=== PATIENT | male | born 1970 | race Caucasian/White ===

== ENCOUNTER 2016-11-03 16:13 | Emergency (ER) | payer BC ==
[2016-11-03 16:49] LABS: Hematocrit 41.2 % (42.0-52.0); Hemoglobin 14.6 gm/dL (13.5-18.0); Mean Cell Volume 83.6 fl (78-100); Mean Corpuscular Hemoglobin 29.6 pg (27-31); Mean Corpuscular Hgb Conc 35.4 g/dl (32-36); Mean Platelet Volume 9.6 fl (6.0-9.5); Neutrophil # 10.2 K/mm3 (1.3-6.0); Neutrophil % 72.2 % (42-75.0); Platelet Count 269 K/mm3 (150-450); Red Blood Count 4.93 M/mm3 (4.7-6.0); Red Cell Distribution Width 12.8 % (11.5-14.0); White Blood Count 14.1 K/mm3 (4.0-10.5)
[2016-11-03 16:49] LABS: Urine Bilirubin Negative (NEGATIVE); Urine Blood Negative /ul (NEGATIVE); Urine Ketone Negative (NEGATIVE); Urine Nitrite Negative (NEGATIVE); Urine Protein 15 mg/dL (NEGATIVE); Urine Urobilinogen Normal (NORMAL); Urine pH 8.5 pH (5.0-7.0)
[2016-11-03 16:50] LABS: Urine Appearance Clear; Urine Color Yellow
[2016-11-03 16:55] LABS: Urine Amorphous Sediment Many - 3+ (NONE-FEW); Urine Bacteria TRACE; Urine RBC None Seen /hpf (0-5); Urine WBC TRACE /hpf (0-5)
--- NOTE | 2016-11-03 16:56 | ERNOTE ---
Abdominal HPI - Narrative Date of Service: 11/03/16 - General Chief Complaint: Abdominal Pain Time Seen by Provider: 11/03/16 16:54 Source: patient, RN notes reviewed Exam Limitations: no limitations - Immun/Allergies/Home Medications Immunizatons: IMMUNIZATION HX History of Influenza Vaccine Yes Allergies/Adverse Reactions: Allergies Sulfa (Sulfonamide Antibiotics) Allergy (Verified 11/03/16 16:29) Home Medications: HOME MEDICATIONS Losartan Potassium [Cozaar] 100 mg PO DAILY 11/03/16 [Last Taken Unknown] Omeprazole [Prilosec] 20 mg PO DAILY 11/03/16 [Last Taken Unknown] - History of Present Illness Narrative: 46 y/o male to ED by private vehicle for abdominal pain that began at 0900 today. He reports that several coworkers have had a GI illness with vomiting and diarrhea that began with severe pain. He has been nauseous but has had no other symptoms. He reports having a "normal" bowel movement this morning. He last ate at noon today. This did not make the pain better or worse. The pain has gradually gotten worse throughout the afternoon. Quality: severe, aching Activities at Onset: none Prior Abdominal Problems: Present: other - GERD. Absent: recent trauma, similar symptoms Prior Treatment: Absent: recently seen Review of Systems - Review of Systems Constitutional: Present: chills, malaise. Absent: fever EYE: Present: no symptoms reported ENT: Present: no symptoms reported Respiratory: Absent: shortness of breath, cough Cardiology: Absent: chest pain, syncope Gastrointestinal/Abdominal: Present: nausea, abdominal pain. Absent: vomiting, diarrhea, constipation Genitourinary: Absent: dysuria, hematuria Musculoskeletal: Absent: back pain, neck pain Skin: Absent: rash, lesions, lumps Neurological: Present: dizziness/light-headedness. Absent: headache Endocrine: Present: no symptoms reported Hematologic/Lymphatic: Present: no symptoms reported Psych: Present: no symptoms reported - Patient's Past Medical History Patient History - Medical: GERD Patient History - Cardiac/Respiratory: Hypertension Patient History - Cancer: No Hx of Cancer Patient History - Surgical Procedures: Colonoscopy, EGD, Other - Knee surgery Patient History - Other: None - Social History Living Situations: spouse Psych History: No pertinent hx Smoking Status: Never smoker Alcohol Use: none Drug Use: none - Immunizations History of Influenza Vaccine: Yes Physical Exam - Physical Exam General Appearance: Present: wd/wn, alert, mild distress Neck: Present: normal inspection, nontender, supple Respiratory: Present: no respiratory distress, normal breath sounds, no accessory muscle use, chest nontender, lungs clear Cardiovascular/Chest: Present: regular rate, rhythm, no murmur Gastrointestinal/Abdominal: Present: nondistended, soft, tenderness - Periumbillical and RLQ, abnormal bowel sounds - hypoactive Back Exam: Present: normal inspection, no CVA tenderness Neurological Exam: Present: alert, oriented, normal mood/affect Skin Exam: Present: normal color, warm/dry ED Progress - Results and Orders Patient's Lab Results:: I have reviewed the patient's lab results. - Vital Signs Patient's Vital Signs:: I have reviewed the patient's vital signs. Vital Signs: Vital Signs 11/03/16 16:21 Temperature 36.3 C L Pulse Rate 73 Respiratory 12 Rate Blood Pressure 130/107 O2 Sat by Pulse 99 Oximetry - CT/Ultrasound CT/Ultrasound Narrative: Technique: After the administration of enteric contrast material, early post IV contrast imaging through the abdomen, and delayed post contrast imaging through the abdomen and pelvis. Coronal reformatted images were performed. Comparison: No relevant priors. Findings: Abdomen: The lung bases are clear. The liver is normal without mass or ductal dilation. The gallbladder is normal. The spleen, pancreas and adrenal glands are normal. The kidneys demonstrate normal contrast-enhancement and excretion and are without solid mass, nephrolithiasis or hydronephrosis. The stomach and small bowel loops are well-opacified and normal. No mesenteric or retroperitoneal lymphadenopathy. The appendix is identified in the right lower quadrant and is normal. No enlargement or inflammation. Pelvis: The bladder is well distended and normal. No free pelvic fluid. No inguinal or pelvic lymphadenopathy. There the aorta is normal. There is mild degenerative change of the spine, SI joints and bilateral hips. IMPRESSION: 1. NO ACUTE INTRA-ABDOMINAL OR PELVIC PROCESS. 2. NORMAL APPENDIX. 3. ADDITIONAL COMMENTS AND DETAILS ABOVE. Electronically signed by Indra Lima D.O.. - Progress/Reassessment Chief Complaint: Abdominal Pain Progress:: Improved Plan - Plan Plan: Pain initially located in periumbillical region with mild RLQ tenderness, but localized to the RLQ. No improvement with Toradol. Did have pain relief with Morphine. No vomiting in dept, was able to tolerate oral CT contrast. Elevated WBC with normal CRP and ESR, unremarkable CT scan, discussed results and indications for needing further eval, as well as the possibility that this could be an early process such as appendicitis. Agreeable to short term f/u as needed. Departure - Departure Clinical Impression: Abdominal pain, acute, right lower quadrant Disposition: Home Follow Up Needed Condition: Stable Instructions: Abdominal Pain, Adult, [id number] Additional Instructions: Small amounts of liquids as tolerated Return for worsening symptoms
[2016-11-03] MEDS ORDERED: KETOROLAC TROMETHAMINE 30 MG/ML VIAL IV ONE (17:04)
[2016-11-03] MEDS ORDERED: ONDANSETRON HCL/PF 2 MG/ML VIAL IV ONE (17:04)
[2016-11-03 17:08] LABS: Albumin * 4.4 gm/dl (3.4-5.0); Anion Gap 15.1 mmol/L (6.8-13.8); BUN/Creatinine Ratio 13.5 (9.0-21.6); Bilirubin, Total 0.6 mg/dL (0.0-1.1); Ca. Corrected For Albumin 8.3 mg/dL (8.4-10.2); Calcium * 8.9 mg/dL (7.9-10.9); Carbon Dioxide 26.6 mmol/L (24-32.6); Potassium 3.7 mmol/L (3.4-4.6); Total Protein 7.6 gm/dL (6.2-8.2)
--- OUTSIDE RECORDS SUMMARY | 2016-11-03 17:14 | XMS REPORT | Continuity of Care Document ---
:1970 Author Organization [facility] ([facility]) Address [address] [place] [address] Phone [phone] Care Team Providers Name Role Phone Unavailable Primary Care Provider Unavailable Source Comments This disclosure is being made pursuant to the Care Everywhere program, applicable federal and state laws, and may not contain all informaitonavailable regarding this patient.[facility] ([facility]) Active Allergies and Adverse Reactions Not on File Current Medications Not on file Active Problems Not on file Social History Tobacco Use Types Packs/Day Years Used Date Never Assessed Plan of Care Health Maintenance Due Date Last Done Comments Hepatitis B Vaccine (1 of 3 - Primary Series) 1970 Tdap Vaccine 1980 Lipid Disorder Screening 1987 MMR Vaccine 1987 Td Vaccine 1987 Influenza Vaccine: Seasonal (#1) 04/14/2016 Results from Last 3 Months Not on file
[2016-11-03] MEDS ORDERED: KETOROLAC TROMETHAMINE 30 MG/ML VIAL ONE (17:17)
[2016-11-03] MEDS ORDERED: ONDANSETRON HCL/PF 2 MG/ML VIAL ONE (17:17)
[2016-11-03] MEDS ORDERED: MORPHINE SULFATE 4 MG/ML SYRG ONE ×2 (17:47→18:01)
[2016-11-03] MEDS ORDERED: MORPHINE SULFATE 4 MG/ML SYRG IV ONE ×2 (17:51→17:58)
[2016-11-03] MEDS ORDERED: DIATRIZOATE MEGLU/DIATRIZO SOD 30 ML BTL PO ONE (17:53)
[2016-11-03] MEDS ORDERED: DIATRIZOATE MEGLU/DIATRIZO SOD 30 ML BTL ONE (17:55)
[2016-11-03] MEDS ORDERED: METOCLOPRAMIDE HCL 5 MG/ML VIAL IV ONE (17:58)
[2016-11-03] MEDS ORDERED: NORMAL SALINE 1,000 ML IV ONE (17:59)
[2016-11-03] MEDS ORDERED: METOCLOPRAMIDE HCL 5 MG/ML VIAL ONE (18:02)
[2016-11-03] MEDS ORDERED: MORPHINE SULFATE 2 MG/ML DISP.SYRIN ONE (19:38)
[2016-11-03] MEDS ORDERED: MORPHINE SULFATE 2 MG/ML DISP.SYRIN IV ONE (19:40)
[2016-11-03 20:05] VITALS: BP 142/87
== END 2016-11-03 20:37 | disposition home or self-care (01) ==
LOC: ER 16:13
DX: R10.31 Right lower quadrant pain (principal); I10 Essential (primary) hypertension; K21.9 Gastro-esophageal reflux disease without esophagitis